=== PATIENT | male | born 1970 | race Caucasian/White ===

== ENCOUNTER 2023-06-19 12:30 | Emergency (ER) | payer OTHER ==
[2023-06-19 12:43] VITALS: RESP 20; TEMP 98.1; O2SAT 98
--- NOTE | 2023-06-19 13:36 | XRAY ---
Indication: Trauma. Kicked by a calf. Multiple contiguous axial images obtained through the head without contrast. Comparison: May 20, 2011. New remote lacunar infarct right basal ganglia. No acute intracranial hemorrhage, abnormal extra-axial fluid collection, or mass effect. Fourth ventricle is midline without hydrocephalus. Read-white matter differentiation is preserved. Bony calvarium intact. Visualized paranasal sinuses and mastoid air cells are clear. Impression: New remote lacunar infarct right basal ganglia. No acute intracranial abnormalities.
--- NOTE | 2023-06-19 13:40 | XRAY ---
Indication: Trauma. Kicked by a calf. Multiple contiguous axial images obtained through the cervical spine. Sagittal and coronal reformatted images obtained. Comparison: None Axial images negative for acute fracture, suspicious bony lesions, or spinal canal stenosis. Minimal/mild multilevel degenerative endplate spurring greatest at C5-C7 levels. Facets are symmetric. Sagittal and coronal reformatted images demonstrates lordotic straightening, positional versus paraspinal spasm. C5-T1 disc space narrowing. No acute compression fracture, subluxation, or jumped facet. Normal appearing craniocervical junction. Visualized noncontrasted soft tissues demonstrate mild bilateral carotid calcifications. CT chest and CT facial bones reported separately. Impression: 1. Cervical lordotic straightening, positional versus paraspinal spasm. 2. Negative acute fracture/supposition. 3. Chronic findings including multilevel degenerative changes and bilateral carotid calcifications.
--- NOTE | 2023-06-19 13:42 | XRAY ---
Indication: Trauma. Kicked by a calf. Multiple contiguous axial images obtained through the facial bones. Sagittal and coronal reformatted images obtained. Comparison: None A few bilateral dental amalgams produces beam artifact. No acute fracture or suspicious bony lesions. Orbits including roof, dorado, and floors intact. Minimal mucosal thickening floor left and right maxillary sinuses. Remaining paranasal sinuses and nasal passages are clear. Minimal nasal septal deviation to the right. Remaining visualized noncontrasted soft tissues are unremarkable. CT head and CT cervical spine reported separately. Impression: 1. Minimal paranasal sinus disease and minimal nasal septal deviation. 2. Remaining CT facial bones negative.
--- NOTE | 2023-06-19 13:46 | XRAY ---
Indication: Trauma. Kicked by a calf. Multiple contiguous axial images obtained through the chest without contrast. Comparison: None Lungs demonstrates tiny right middle lobe calcified granuloma and minimal bilateral dependent atelectasis. No suspicious pulmonary mass/nodule, infiltrate, effusion, or pneumothorax. Heart not enlarged with scattered coronary calcifications. Aorta is normal in course and caliber. Tiny subcarinal calcified node. No pathologic mediastinal lymphadenopathy. Bony thorax intact with minimal/mild degenerative changes throughout the spine. Right anterolateral chest demonstrates multifocal areas of cutaneous/subcutaneous induration, probable bruising given clinical history. Limited upper abdomen including adrenal glands are unremarkable. Impression: 1. Right chest bruising. No underlying fracture. 2. Minimal dependent atelectasis, coronary calcifications, multilevel degenerative spondylosis, and old granulomatous disease. 3. Remaining CT chest without contrast exam is negative.
[2023-06-19 14:06] VITALS: BP 126/92; PULSE 80
--- NOTE | 2023-06-19 14:21 | ERPHSYRPT ---
- History of Present Illness Time Seen by Provider: 06/19/23 12:35 Source: patient Exam Limitations: no limitations Patient Subjective Stated Complaint: Pt states "A calf kicked me." Triage Nursing Assessment: Pt presented alert and oriented X 3, skin pwd. Pt ambulates with an upright steady gait, able to speak in clear full sentences pt has swollen left cheek and jaw, abrasion noted to left shoulder, abrasion noted to righ chest Physician History: 52 years old male with history of anxiety, chronic knee and back pain presented in the ER after he got kicked by a Calf at the forearm on his left face, shoulder and right anterolateral chest wall. Patient denies hitting his head, no loss of consciousness. Denies any neck pain. No difficulty breathing. Patient has taken his pain medication and currently minimal discomfort but has increasing swelling in the left lateral jaw area. No injury anywhere else. Timing/Duration: today, constant, sudden, improved Severity: moderate Allergies/Adverse Reactions: No Known Drug Allergies Allergy (Verified 06/19/23 12:38) Home Medications: Buprenorphine HCl [Belbuca] 900 mcg BC BID 06/19/23 [History] Diclofenac Sodium 75 mg PO DAILY 06/19/23 [History] Hydrocodone/Acetaminophen [Hydrocodone-Acetamin 10-325 mg] 1 each PO TID 06/19/23 [History] Hx Tetanus, Diphtheria Vaccination/Date Given: Yes Hx Influenza Vaccination/Date Given: No Hx Pneumococcal Vaccination/Date Given: No Immunizations Up to Date: Yes Travel Risk - International Travel Have you traveled outside of the country in past 3 weeks: No - Coronavirus Screening Are you exhibiting any of the following symptoms?: No Close contact with a COVID-19 positive Pt in past 14-21 Days: No - Vaccine Status Have you recieved a Covid-19 vaccination: Yes Chief Lending Officer: Moderna - Vaccination Dates Date of 2cond Vaccination (if applicable): 2020 - Review of Systems Constitutional: No Symptoms Eyes: No Symptoms Ears, Nose, & Throat: Mouth Swelling Respiratory: No Symptoms Cardiac: Chest Pain Abdominal/Gastrointestinal: No Symptoms Genitourinary Symptoms: No Symptoms Musculoskeletal: Injury, Joint Pain Skin: No Symptoms Neurological: No Symptoms Psychological: No Symptoms Endocrine: No Symptoms Hematologic/Lymphatic: No Symptoms Immunological/Allergic: No Symptoms - Past Medical History Pertinent Past Medical History: Yes Musculoskeletal History: Other Other Medical History: chronic back. rigt knee - Past Surgical History Past Surgical History: Yes Other Surgical History: right shoulder - Social History Smoking Status: Never smoker Exposure to second hand smoke: No Drug Use: none Patient Lives Alone: Yes - Nursing Vital Signs Nursing Vital Signs: Initial Vital Signs Temperature 98.1 F 06/19/23 12:33 Pulse Rate 85 06/19/23 12:33 Respiratory Rate 20 06/19/23 12:33 Blood Pressure 132/98 06/19/23 12:33 O2 Sat by Pulse Oximetry 98 06/19/23 12:33 Pain Scale Pain Intensity 4 - Physical Exam General Appearance: no apparent distress, alert Eye Exam: PERRL/EOMI Ears, Nose, Throat Exam: TMs normal, pharynx normal, other (Diffuse swelling at left angle of mandible with bony tenderness. No crepitus. No tenderness at TMJ. Intact movements of TMJ/lower jaw. No maxillary tenderness. No ENT bleed) Neck Exam: normal inspection, non-tender, supple, full range of motion, No meningismus Respiratory Exam: normal breath sounds, chest tenderness (Right anterolateral chest wall bruising/contusion with no crepitus. No flail segment.), lungs clear Cardiovascular Exam: regular rate/rhythm, normal heart sounds Gastrointestinal/Abdomen Exam: soft, normal bowel sounds, No tenderness Back Exam: normal inspection, normal range of motion, No CVA tenderness Extremity Exam: normal range of motion, swelling (Bruising left shoulder but intact range of motion. Minimal tenderness.) Neurologic Exam: alert, oriented x 3, cooperative, jacquard card lacer II-XII nml as tested, normal mood/affect, nml cerebellar function, nml station & gait, sensation nml, No motor deficits Skin Exam: normal color SpO2 Interpretation: normal SpO2: 98 O2 Delivery: Room Air Ordered Tests: Active Orders 24 hr Category Date Time Status CERVICAL SPINE WO CONTRAST [CT] Stat Exams 06/19/23 12:49 Completed CHEST WITHOUT CONTRAST [CT] Stat Exams 06/19/23 12:49 Completed FACIAL BONES WO CONTRAST [CT] Stat Exams 06/19/23 12:49 Completed HEAD WITHOUT CONTRAST [CT] Stat Exams 06/19/23 12:49 Completed - Progress Progress: improved, pain not gone completely Progress Note: 06/19/23 14:20 52 years old male with history of anxiety, chronic knee and back pain presented in the ER after he got kicked by a Calf at the forearm on his left face, shoulder and right anterolateral chest wall. Patient denies hitting his head, no loss of consciousness. Denies any neck pain. No difficulty breathing. Patient has taken his pain medication and currently minimal discomfort but has increasing swelling in the left lateral jaw area. No injury anywhere else. Patient has swelling left angle of mandible without crepitus. Intact range of motion of jaw. No midline neck tenderness. Nonfocal neuro exam throughout her stay in the ER. Has bruising/contusion of right chest wall and left shoulder with no obvious difficulty breathing. Lungs bilateral clear to auscultation. I have obtained CT head cervical spine/facial bone and chest without contrast which are negative for any acute fracture/trauma findings. Does have some swelling of the left angle of mandible. Patient has pain medications at home which she is advised to continue. Recommended intermittent ice application and outpatient follow-up. Counseled pt/family regarding: diagnosis, need for follow-up, rad results - Departure Departure Disposition: Home Clinical Impression: Facial contusion, Chest wall contusion Condition: Stable Critical Care Time: No Referrals: JEWELS WEINBERG NP [Primary Care Provider] - Follow up with PCP 1 day Instructions: Contusion (DC), Rib Fracture or Bruised Rib ED Additional Instructions: Take pain medications which you have at home as recommended. Intermittent ice application. Do deep breathing exercises. Follow-up with primary care for reevaluation. Return to ER for intractable pain, difficulty movements of jaw, intractable headache, difficulty breathing etc.
== END 2023-06-19 14:32 | disposition home or self-care (01) ==
LOC: ED 12:30
DX: S20.211A Contusion of right front wall of thorax, initial encounter (principal); S00.83XA Contusion of other part of head, initial encounter; S40.012A Contusion of left shoulder, initial encounter; W55.22XA Struck by cow, initial encounter; Z79.891 Long term (current) use of opiate analgesic; Z79.899 Other long term (current) drug therapy
CPT/HCPCS: 70450; 70486; 71250; 72125; 99283

== ENCOUNTER 2025-01-09 09:21 | Emergency (ER) | payer OTHER ==
[2025-01-09 09:33] VITALS: TEMP 97.3
[2025-01-09 10:12] LABS: BASOPHIL % 0.7 % (0.2-1.2); Basophil (Absolute #) 0.03 x10^3/uL (0.01-0.08); Eosinophil % 4.5 % (0.8-7.0); Eosinophil (Absolute #) 0.18 x10^3/uL (0.04-0.54); Hemoglobin 13.5 g/dL (13.7-17.5); IMMATURE GRAN # 0.02 x10^3u/L (0.001-0.031); IMMATURE GRAN % 0.5 % (0.001-0.429); Lymphocyte (Absolute #) 1.24 x10^3/uL (1.32-3.57); Lymphocytes % 30.7 % (21.8-53.1); Mean Cell Volume 86.1 fL (79.0-92.2); Mean Corpuscular Hemoglobin 27.7 pg (25.7-32.2); Mean Corpuscular Hgb Concent. 32.1 g/dL (32.3-36.5); Mean Platelet Volume 10.2 fL (9.4-12.4); Monocyte (Absolute #) 0.27 x10^3/uL (0.30-0.82); Monocytes % 6.7 % (5.3-12.2); Neutrophil % 56.9 % (34.0-67.9); Platelet Count 178 x10^3/uL (163-337); Red Blood Count 4.88 x10^6/uL (4.63-6.08); Red Cell Distribution Width 13.3 % (11.6-14.4)
--- NOTE | 2025-01-09 10:24 | ERPHSYRPT ---
- History of Present Illness Historian: patient Exam Limitations: no limitations Patient Subjective Stated Complaint: Chest pain Triage Nursing Assessment: Patient ambulated into ED and transferred self to bed. Patient A+O X 3. Patient's skin pink, warm and dry. Patient complains of chest pain to left side of chest 5/10 and states his fingers are numb. Patient states the CP started yesterday, but the numbness to fingers started today. Patient denies N/V. Patient also reports being extremely tired the past couple of days. Physician History: Patient has chest pain.Has been going on for about 2 days. It is substernal and sharp. Nothing he does really makes it better or worse. He has not had any dyspnea. He is had no fever chills nausea vomiting or other systemic symptoms. He has no medical problems right now but does have a family history of his dad had a heart attack in his Late 50s.He has no other complaints at this time. Aspirin Treatment Today: no aspirin today Allergies/Adverse Reactions: No Known Drug Allergies Allergy (Verified 01/09/25 09:27) Home Medications: Buprenorphine HCl [Belbuca] 900 mcg BC BID 06/19/23 [History] Diclofenac Sodium 75 mg PO DAILY 06/19/23 [History] Hydrocodone/Acetaminophen [Hydrocodone-Acetamin 10-325 mg] 1 each PO TID 06/19/23 [History] Hx Tetanus, Diphtheria Vaccination/Date Given: Yes Hx Influenza Vaccination/Date Given: No Hx Pneumococcal Vaccination/Date Given: No Immunizations Up to Date: Yes Travel Risk - International Travel Have you traveled outside of the country in past 3 weeks: No - Emerging Infectious Disease Are you exhibiting symptoms associated with any current EIDs: No - Review of Systems Constitutional: No Symptoms Eyes: No Symptoms Ears, Nose, & Throat: No Symptoms Respiratory: No Symptoms Cardiac: Chest Pain - Past Medical History Pertinent Past Medical History: Yes Musculoskeletal History: Other Other Medical History: chronic back. right knee - Past Surgical History Past Surgical History: Yes Musculoskeletal: Orthopedic Surgery Other Surgical History: right shoulder - Social History Smoking Status: Never smoker Exposure to second hand smoke: No Drug Use: none - Social Determinants of Health Will the patient participate in the screening: Yes Do you worry about a steady place to live?: No Do you have any problems with any of the following?: No known problems In the past 12 months,have you had to go without utilities?: No Transportation Issues: No Has anyone in your support network made you feel unsafe?: No Have you or anyone in your house had to go w/o enough food: No - Nursing Vital Signs Nursing Vital Signs: Initial Vital Signs Pulse Rate 78 01/09/25 09:26 Respiratory Rate 12 01/09/25 09:26 Pain Scale Pain Intensity 0 - Physical Exam General Appearance: no apparent distress Neck Exam: normal inspection Respiratory Exam: normal breath sounds, No chest tenderness Cardiovascular Exam: regular rate/rhythm, normal heart sounds Gastrointestinal/Abdomen Exam: soft, normal bowel sounds Back Exam: normal inspection, normal range of motion Extremity Exam: normal inspection, normal range of motion Neurologic Exam: alert, oriented x 3, cooperative Skin Exam: normal color, warm SpO2: 97 - Course Nursing assessment & vital signs reviewed: Yes EKG Interpreted by Me: RATE, Sinus Rhythm, NORMAL AXIS, NORMAL INTERVALS, NORMAL QRS Ordered Tests: Active Orders 24 hr Category Date Time Status EKG-ER Only STAT Care 01/09/25 09:57 Active CHEST 1 VIEW (PORTABLE) Stat Exams 01/09/25 09:57 Taken CHEST WITH CONTRAST [CT] Stat Exams 01/09/25 10:44 Completed CBC W DIFF Stat Lab 01/09/25 10:12 Completed CMP Stat Lab 01/09/25 10:12 Completed D-DIMER QUANTITATIVE Stat Lab 01/09/25 10:12 Completed TROPONIN Q4H Lab 01/09/25 10:12 Completed TROPONIN Q4H Lab 01/09/25 13:06 Completed TROPONIN Q4H Lab 01/09/25 14:00 Ordered TROPONIN Q4H Lab 01/09/25 17:00 Ordered TROPONIN Q4H Lab 01/09/25 18:00 Ordered TROPONIN Q4H Lab 01/09/25 21:00 Ordered Lab/Rad Data: Laboratory Result Diagrams 01/09/25 10:12 01/09/25 10:12 Laboratory Results 01/09/25 01/09/25 01/09/25 Range/Units 13:06 11:31 10:12 WBC (4.23-9.07) x10^3/uL RBC (4.63-6.08) x10^6/uL Hgb (13.7-17.5) g/dL Hct (40.1-51.0) % MCV (79.0-92.2) fL MCH (25.7-32.2) pg MCHC (32.3-36.5) g/dL RDW (11.6-14.4) % Plt Count (163-337) x10^3/uL MPV (9.4-12.4) fL Gran % (34.0-67.9) % Immature Gran % (Auto) (0.001-0.429) % Nucleat RBC Rel Count (0.00-0.2) % Eos # (Auto) (0.04-0.54) x10^3/uL Immature Gran # (Auto) (0.001-0.031) x10^3u/L Absolute Lymphs (auto) (1.32-3.57) x10^3/uL Absolute Monos (auto) (0.30-0.82) x10^3/uL Absolute Nucleated RBC (0.00-0.012) x10^3u/L Lymphocytes % (21.8-53.1) % Monocytes % (5.3-12.2) % Eosinophils % (0.8-7.0) % Basophils % (0.2-1.2) % Absolute Granulocytes (1.78-5.38) x10^3/uL Basophils # (0.01-0.08) x10^3/uL D-Dimer (0.0-0.50) mg/L Sodium (135-145) mmol/L Potassium (3.5-5.1) mmol/L Chloride (98-107) mmol/L Carbon Dioxide (22-30) mmol/L Anion Gap (5-15) MEQ/L BUN (9-20) mg/dL Creatinine (0.66-1.25) mg/dL Estimated GFR ML/MIN Glucose (74-106) mg/dL Calcium (8.4-10.2) mg/dL Total Bilirubin (0.2-1.3) mg/dL AST (17-59) U/L ALT (0-50) U/L Alkaline Phosphatase (38-126) U/L Troponin I < 0.012 < 0.012 (0.000-0.033) ng/mL Serum Total Protein (6.3-8.2) g/dL Albumin (3.5-5.0) g/dL Influenza Type A Ag NEGATIVE (NEGATIVE) Influenza Type B Ag NEGATIVE (NEGATIVE) RSV (PCR) NEGATIVE (NEGATIVE) SARS-CoV-2 (PCR) NEGATIVE (NEGATIVE) 01/09/25 01/09/25 01/09/25 Range/Units 10:12 10:12 10:12 WBC 4.0 L (4.23-9.07) x10^3/uL RBC 4.88 (4.63-6.08) x10^6/uL Hgb 13.5 L (13.7-17.5) g/dL Hct 42.0 (40.1-51.0) % MCV 86.1 (79.0-92.2) fL MCH 27.7 (25.7-32.2) pg MCHC 32.1 L (32.3-36.5) g/dL RDW 13.3 (11.6-14.4) % Plt Count 178 (163-337) x10^3/uL MPV 10.2 (9.4-12.4) fL Gran % 56.9 (34.0-67.9) % Immature Gran % (Auto) 0.5 H (0.001-0.429) % Nucleat RBC Rel Count 0.0 (0.00-0.2) % Eos # (Auto) 0.18 (0.04-0.54) x10^3/uL Immature Gran # (Auto) 0.02 (0.001-0.031) x10^3u/L Absolute Lymphs (auto) 1.24 L (1.32-3.57) x10^3/uL Absolute Monos (auto) 0.27 L (0.30-0.82) x10^3/uL Absolute Nucleated RBC 0.00 (0.00-0.012) x10^3u/L Lymphocytes % 30.7 (21.8-53.1) % Monocytes % 6.7 (5.3-12.2) % Eosinophils % 4.5 (0.8-7.0) % Basophils % 0.7 (0.2-1.2) % Absolute Granulocytes 2.30 (1.78-5.38) x10^3/uL Basophils # 0.03 (0.01-0.08) x10^3/uL D-Dimer 0.83 H* (0.0-0.50) mg/L Sodium 142 (135-145) mmol/L Potassium 4.0 (3.5-5.1) mmol/L Chloride 104 (98-107) mmol/L Carbon Dioxide 28 (22-30) mmol/L Anion Gap 14.8 (5-15) MEQ/L BUN 10 (9-20) mg/dL Creatinine 0.81 (0.66-1.25) mg/dL Estimated GFR 103.5 ML/MIN Glucose 102 (74-106) mg/dL Calcium 8.6 (8.4-10.2) mg/dL Total Bilirubin 0.60 (0.2-1.3) mg/dL AST 42 (17-59) U/L ALT 55 H (0-50) U/L Alkaline Phosphatase 86 (38-126) U/L Troponin I (0.000-0.033) ng/mL Serum Total Protein 6.9 (6.3-8.2) g/dL Albumin 4.3 (3.5-5.0) g/dL Influenza Type A Ag (NEGATIVE) Influenza Type B Ag (NEGATIVE) RSV (PCR) (NEGATIVE) SARS-CoV-2 (PCR) (NEGATIVE) - Progress Progress: improved Air Movement: good Progress Note: On the differential is pulmonary embolism, coronary vascular chest pain,Pericarditis,Pleurisy, pneumonia,. We got troponins on him and they were not elevated. We did a repeat after 3 hours. His EKG was interpreted by me. It showed no acute ST or T changes normal sinus rhythm and normal axis. I do n ot think that he has a coronary vascular event going on.His D-dimer was elevated we got a CT that showed noPulmonary embolism.. I do not think that the patient is having cardiovascular chest pain. I believe it is probably musculoskeletal. I am going to send him home 01/09/25 10:23 01/09/25 13:41 01/09/25 13:41 Blood Culture(s) Obtained: No - Departure Departure Disposition: Home Clinical Impression: Chest pain Qualifiers: Chest pain type: unspecified Qualified Code(s): R07.9 - Chest pain, unspecified Condition: Stable Critical Care Time: No Referrals: JEWELS WEINBERG NP [Primary Care Provider] - Follow up/PCP as directed Instructions: Chest Pain (DC)
[2025-01-09 10:30] LABS: ALBUMIN 4.3 g/dL (3.5-5.0); ANION GAP 14.8 MEQ/L (5-15); BILIRUBIN,TOTAL 0.6 mg/dL (0.2-1.3); Calcium 8.6 mg/dL (8.4-10.2); Creatinine 1 0.81 mg/dL (0.66-1.25); EST GLOMERULAR FILTRATION RATE 103.5 ML/MIN; Total Protein 6.9 g/dL (6.3-8.2)
[2025-01-09 12:04] LABS: INFLUENZA A NEGATIVE (NEGATIVE); INFLUENZA B NEGATIVE (NEGATIVE); RESPIRATORY SYNCTIAL VIRUS NEGATIVE (NEGATIVE); SARS-CoV-2 Xpert Express NEGATIVE (NEGATIVE)
--- NOTE | 2025-01-09 12:42 | XRAY ---
CLINICAL HISTORY: dyspnea, ELEVATED D DIMER COMPARISON: None. TECHNIQUE: Contiguous 3.[address] images of the chest were acquired with the administration of intravenous contrast. Coronal and sagittal reconstructions were obtained. One of the following dose reduction techniques were utilized for this exam: Automated exposure control, adjustment of the mA and/or kV according to patient size, and use of iterative reconstruction FINDINGS: Lungs: Lungs are clear with no evidence of consolidation or collapse. A small 4 mm calcified nodule within right middle lobe noted is likely a granuloma. No ground-glass opacities or interstitial changes. No pleural effusion or pleural thickening. Mediastinum: No mediastinal mass or abnormal lymphadenopathy. Normal appearance of the thymus. Hilar Structures: Normal size and configuration, no enlargement. Heart and Great Vessels: Normal heart size and configuration. No pericardial effusion. Normal caliber and course of the thoracic aorta and other great vessels. No significant atherosclerosis or aneurysm. Pulmonary Arteries: No evidence of pulmonary embolism. Normal size and course of the pulmonary arteries. Esophagus: Normal course and caliber. No masses or dilatation. Bones: No fractures or lytic/sclerotic lesions. Normal bone density and alignment. No evidence of rib fractures. Mild wedge-shaped deformity of L1 vertebral body with sclerotic contours is likely a chronic fracture. Chest Wall: No masses or soft tissue abnormalities. Upper Abdomen: Visualized portions of the liver, spleen, pancreas, adrenal glands, and kidneys are normal. No abnormalities noted in the visualized upper abdominal organs. Thyroid: Normal size and morphology. No nodules or masses. IMPRESSION: 1. No evidence of pulmonary embolism. 2. The lung parenchyma is clear with no evidence of consolidation, or collapse. 3. A small 4 mm calcified nodule within the right middle lobe noted is likely a granuloma. Electronically Signed by: Kirti Nunez MD. (01/09/2025 12:37:21 EDT)
[2025-01-09 12:53] VITALS: PULSE 75
[2025-01-09 13:41] VITALS: O2SAT 97
[2025-01-09 13:46] VITALS: BP 180/76; RESP 17
--- NOTE | 2025-01-09 19:56 | XRAY ---
Indication: Chest pain. Comparison: May 20, 2011 Portable chest is now hyperinflated and remains clear. Heart not enlarged. Bony thorax intact with interval right shoulder arthroplasty. Impression: Nonacute hyperinflated chest.
== END 2025-01-09 13:53 | disposition home or self-care (01) ==
LOC: ED 09:21
DX: R07.9 Chest pain, unspecified (principal); Z79.891 Long term (current) use of opiate analgesic; Z79.899 Other long term (current) drug therapy
CPT/HCPCS: 0241U; 36415; 71045; 71260; 80053; 84484; 85025; 85379; 93005; 93041; 99285; 99284

== ENCOUNTER 2025-07-29 16:48 | Emergency (ER) | payer OTHER ==
[2025-07-29 17:01] VITALS: TEMP 98.6
--- NOTE | 2025-07-29 17:34 | ERPHSYRPT ---
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 patient is alert and orientedx4, able to ambulate by self, skin warm dry and intact, has knee replacement jun 21 and and he got infection and had to start on medicatiosn for it roughly three weeks ago, he does take percocet for pain as well. he saw wound care and had dressing change today. 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, he denies have any leg pain bilaterally, he denies any chest pain Witnessed: unwitnessed Prior Episodes: single episode today Context: sitting Loss of Consciousness: brief (seconds) Allergies/Adverse Reactions: No Known Drug Allergies Allergy (Verified 01/09/25 09:27) Home Medications: Buprenorphine HCl [Belbuca] 900 mcg BC BID 06/19/23 [History] Diclofenac Sodium 75 mg PO DAILY 06/19/23 [History] Hydrocodone/Acetaminophen [Hydrocodone-Acetamin 10-325 mg] 1 each PO TID 06/19/23 [History] Smz/Tmp Ds Tablet [Bactrim Ds Tablet] 1 tab PO Q12H 07/29/25 [History] Hx Tetanus, Diphtheria Vaccination/Date Given: Yes Hx Influenza Vaccination/Date Given: No Hx Pneumococcal Vaccination/Date Given: No Travel Risk - International Travel Have you traveled outside of the country in past 3 weeks: No - Emerging Infectious Disease Are you exhibiting symptoms associated with any current EIDs: No - Past Medical History Pertinent Past Medical History: Yes Musculoskeletal History: Other Other Medical History: chronic back. right knee - Past Surgical History Past Surgical History: Yes Musculoskeletal: Orthopedic Surgery Other Surgical History: right shoulder - Social History Smoking Status: Never smoker Exposure to second hand smoke: No Drug Use: none - Social Determinants of Health Will the patient participate in the screening: Yes Do you worry about a steady place to live?: No Do you have any problems with any of the following?: No known problems In the past 12 months,have you had to go without utilities?: No Transportation Issues: No Has anyone in your support network made you feel unsafe?: No Have you or anyone in your house had to go w/o enough food: No Physical Exam - Nursing Vital Signs Nursing Vital Signs: Initial Vital Signs Temperature 98.6 F 07/29/25 16:49 Pulse Rate 109 H 07/29/25 16:49 Respiratory Rate 22 07/29/25 16:49 Blood Pressure 136/99 07/29/25 16:49 O2 Sat by Pulse Oximetry 96 07/29/25 16:49 Pain Scale Pain Intensity 2 - Physical Exam General Appearance: no apparent distress, alert Eye Exam: bilateral eye: normal inspection, PERRL, EOMI Ears, Nose, Throat Exam: normal ENT inspection, pharynx normal, moist mucous membranes Neck Exam: normal inspection, non-tender, supple, full range of motion Respiratory: normal breath sounds, lungs clear Cardiovascular: tachycardia Gastrointestinal: soft, normal bowel sounds Back Exam: normal inspection, normal range of motion Extremity Exam: other (Right knee bandage with dressing over the patellar aspect) SpO2: 96 Ordered Tests: Active Orders 24 hr Category Date Time Status Supervisor Ride Assembly STAT Care 07/29/25 17:16 Active IV Insertion STAT Care 07/29/25 17:16 Active CHEST WITH CONTRAST [CT] Stat Exams 07/29/25 17:17 Ordered CBC W DIFF Stat Lab 07/29/25 17:40 Completed CMP Stat Lab 07/29/25 17:40 Completed D-DIMER QUANTITATIVE Stat Lab 07/29/25 17:40 Completed PROTIME WITH INR Stat Lab 07/29/25 17:40 Completed Lab/Rad Data: Laboratory Result Diagrams 07/29/25 17:40 07/29/25 17:40 Laboratory Results 07/29/25 07/29/25 07/29/25 Range/Units 17:40 17:40 17:40 WBC 6.0 (4.23-9.07) x10^3/uL RBC 4.34 L (4.63-6.08) x10^6/uL Hgb 11.9 L (13.7-17.5) g/dL Hct 38.0 L (40.1-51.0) % MCV 87.6 (79.0-92.2) fL MCH 27.4 (25.7-32.2) pg MCHC 31.3 L (32.3-36.5) g/dL RDW 14.4 (11.6-14.4) % Plt Count 186 (163-337) x10^3/uL MPV 10.7 (9.4-12.4) fL Gran % 78.7 H (34.0-67.9) % Immature Gran % (Auto) 0.3 (0.001-0.429) % Nucleat RBC Rel Count 0.0 (0.00-0.2) % Eos # (Auto) 0.06 (0.04-0.54) x10^3/uL Immature Gran # (Auto) 0.02 (0.001-0.031) x10^3u/L Absolute Lymphs (auto) 0.65 L (1.32-3.57) x10^3/uL Absolute Monos (auto) 0.50 (0.30-0.82) x10^3/uL Absolute Nucleated RBC 0.00 (0.00-0.012) x10^3u/L Lymphocytes % 10.9 L (21.8-53.1) % Monocytes % 8.4 (5.3-12.2) % Eosinophils % 1.0 (0.8-7.0) % Basophils % 0.7 (0.2-1.2) % Absolute Granulocytes 4.69 (1.78-5.38) x10^3/uL Basophils # 0.04 (0.01-0.08) x10^3/uL PT 10.2 (9.4-12.5) SECONDS INR 0.91 (0.8-3.0) D-Dimer 1.78 H* (0.0-0.50) mg/L Sodium 139 (135-145) mmol/L Potassium 3.9 (3.5-5.1) mmol/L Chloride 106 (98-107) mmol/L Carbon Dioxide 25 (22-30) mmol/L Anion Gap 11.4 (5-15) MEQ/L BUN 12 (9-20) mg/dL Creatinine 1.01 (0.66-1.25) mg/dL Estimated GFR 87.3 ML/MIN Glucose 83 (74-106) mg/dL Calcium 8.8 (8.4-10.2) mg/dL Total Bilirubin 0.30 (0.2-1.3) mg/dL AST 31 (17-59) U/L ALT 29 (0-50) U/L Alkaline Phosphatase 129 H (38-126) U/L Serum Total Protein 6.7 (6.3-8.2) g/dL Albumin 4.3 (3.5-5.0) g/dL - Progress Progress Note: 07/29/25 18:48 CT chest pending results, signout to - Departure Clinical Impression: Syncope and collapse Condition: Stable Critical Care Time: No Referrals: JEWELS WEINBERG, NAVNEET [Primary Care Provider, [facility]] - Follow up/PCP as directed
[2025-07-29 17:46] LABS: BASOPHIL % 0.7 % (0.2-1.2); Basophil (Absolute #) 0.04 x10^3/uL (0.01-0.08); Eosinophil (Absolute #) 0.06 x10^3/uL (0.04-0.54); Hematocrit 38.0 % (40.1-51.0); Hemoglobin 11.9 g/dL (13.7-17.5); IMMATURE GRAN # 0.02 x10^3u/L (0.001-0.031); IMMATURE GRAN % 0.3 % (0.001-0.429); Lymphocyte (Absolute #) 0.65 x10^3/uL (1.32-3.57); Mean Corpuscular Hemoglobin 27.4 pg (25.7-32.2); Mean Corpuscular Hgb Concent. 31.3 g/dL (32.3-36.5); Monocyte (Absolute #) 0.50 x10^3/uL (0.30-0.82); NUCLEATED RBC # 0.00 x10^3u/L (0.00-0.012); NUCLEATED RBC % 0.0 % (0.00-0.2); Platelet Count 186 x10^3/uL (163-337); Red Blood Count 4.34 x10^6/uL (4.63-6.08); White Blood Count 6.0 x10^3/uL (4.23-9.07)
[2025-07-29 17:59] LABS: Calcium 8.8 mg/dL (8.4-10.2); Carbon Dioxide 25.0 mmol/L (22-30); Creatinine 1 1.01 mg/dL (0.66-1.25); EST GLOMERULAR FILTRATION RATE 87.3 ML/MIN; Glucose 83.0 mg/dL (74-106); Potassium 3.9 mmol/L (3.5-5.1); SGOT/AST 31.0 U/L (17-59); SGPT/ALT 29.0 U/L (0-50); Total Protein 6.7 g/dL (6.3-8.2)
[2025-07-29 18:08] LABS: INR 0.91 (0.8-3.0); PROTIME 10.2 SECONDS (9.4-12.5)
[2025-07-29 20:37] VITALS: BP 157/99; PULSE 94; RESP 24; O2SAT 97
--- NOTE | 2025-07-30 07:45 | XRAY ---
Indication: Syncope. Elevated d-dimer. Status post knee replacement. Multiple contiguous axial images obtained through the chest using total of 140 cc Isovue-370 contrast and PE protocol. Comparison: January 09, 2025 Adequate opacification pulmonary arteries. However mild diffuse respiration artifact limits pulmonary embolus evaluation. No obvious pulmonary embolus. Heart not enlarged. Aorta is normal in course and caliber. No pathologic mediastinal/hilar lymphadenopathy. Lungs again demonstrates mild bilateral dependent atelectasis, more than before. Stable tiny right middle lobe calcified granuloma. No suspicious pulmonary mass/nodule, infiltrate, or effusion. Bony thorax intact again with mild degenerative changes throughout the spine. Limited upper abdomen again demonstrates fatty liver. Visualized colon again demonstrates mild diffuse fecal stasis. Impression: 1. Pulmonary embolus evaluation limited by respiration artifact. No obvious pulmonary embolus. No new/acute cardiopulmonary abnormalities. 2. Chronic findings including fatty liver, degenerative spondylosis, and old granulomatous disease. 3. Again incidental colonic fecal stasis.
== END 2025-07-29 20:46 | disposition home or self-care (01) ==
LOC: ED 16:48
DX: R55 Syncope and collapse (principal); Z79.891 Long term (current) use of opiate analgesic; Z79.899 Other long term (current) drug therapy